=== PATIENT | male | born 1990 | race African-American/Black ===

== ENCOUNTER 2018-01-27 12:53 | Emergency (ER) | payer SELFPAY ==
[2018-01-27] MEDS: LIDOCAINE WITH 8.4% SOD BICARB 3 ML DISP.SYRIN. INJ (13:08)
[2018-01-27] MEDS: DIPHTH,PERTUSS(ACELL),TET TOX 0.5 ML DISP.SYRIN. VAX IM (13:11)
[2018-01-27] MEDS: LIDOCAINE 1% PF 30 ML VIAL. INJ (13:11)
== END 2018-01-27 13:39 | disposition home or self-care (01) ==
LOC: ER 12:53
DX: S61.216A Laceration without foreign body of right little finger without damage to nail, initial encounter (principal); W25.XXXA Contact with sharp glass, initial encounter; Y93.89 Activity, other specified; Y92.89 Other specified places as the place of occurrence of the external cause; Y99.8 Other external cause status
CPT/HCPCS: 12001; 90471; 90715; 99283

== ENCOUNTER 2018-05-12 21:59 | Emergency (ER) | payer SELFPAY ==
[~2018-05-12] VITALS: Ht 172.7 cm; Wt 65.8 kg
[2018-05-12] MEDS ORDERED: IV NORMAL SALINE 1000ML BAG 1,000 ML IV ONE (22:45)
[2018-05-12] MEDS ORDERED: fentaNYL PF VIAL 100 MCG/2 ML VIAL IV ONE (23:00)
[2018-05-12 23:04] LABS: BASO % 0 % (0-3); EOS # 0.1 x10^3/uL (0.0-0.7); EOS % 1 % (0-3); HEMATOCRIT 36.1 % (39.0-53.0); HEMOGLOBIN 12.6 g/dL (13.0-17.5); LYMPH # 1.9 x10^3/uL (1.0-4.8); LYMPH % 18 % (24-48); MEAN CORPUSCULAR HEMOGLOBIN 33 pg (25-35); MEAN CORPUSCULAR HGB CONC 35 g/dL (31-37); MEAN CORPUSCULAR VOLUME 95 fL (79-100); MONO # 0.9 x10^3/uL (0.0-1.1); MONO % 9 % (0-9); NEUT # 7.5 x10^3uL (1.8-7.7); NEUT % 72 % (31-73); PLATELET COUNT 190 x10^3/uL (140-400); RED BLOOD COUNT 3.79 x10^6/uL (4.30-5.70); RED CELL DISTRIBUTION WIDTH 12.6 % (11.5-14.5); WHITE BLOOD COUNT 10.5 x10^3/uL (4.0-11.0)
[2018-05-12 23:07] LABS: BILIRUBIN,URINE NEGATIVE (NEG); CLARITY,URINE CLEAR; COLOR,URINE YELLOW; NITRITE,URINE NEGATIVE (NEG); PH,URINE 6.5; PROTEIN,URINE NEGATIVE (NEG-TRACE)
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
[2018-05-12 23:15] LABS: CALCIUM 9.4 mg/dL (8.5-10.1); CREATININE 0.9 mg/dL (0.7-1.3); GFR 122.5; POTASSIUM 3.6 mmol/L (3.5-5.1)
[2018-05-12 23:18] LABS: BACTERIA,URINE MODERATE /HPF (0-FEW); SQUAMOUS EPITHELIAL CELL,UR FEW /LPF; WBC,URINE TNTC /HPF (0-4)
[2018-05-12 23:19] LABS: HYALINE CASTS, URINE FEW /HPF
[2018-05-12 23:20] LABS: ALBUMIN 3.8 g/dL (3.4-5.0); TOTAL BILIRUBIN 0.3 mg/dL (0.2-1.0); TOTAL PROTEIN 7.8 g/dL (6.4-8.2)
--- NOTE | 2018-05-13 00:21 | RAD ---
Scrotal ultrasound: Reason for examination: Right testicular pain with swelling. The scrotal was evaluated with grayscale imaging, color-flow imaging and spectral analysis. The right testicle measures 4.5 x 2.9 x 2.4 cm in greatest dimension. There is normal vascular flow. No focal lesions are seen. The right epididymis appears be enlarged with increased vascularity consistent with epididymitis. There is a small hydrocele present. The left testicle measures 5.1 x 2.3 x 2.3 cm in greatest dimension appears homogeneous with good vascular flow. No abnormality seen at the left epididymis. No significant hydrocele is present on the left. IMPRESSION: Enlarged heterogeneous right epididymis with increased vascularity consistent with epididymitis. Electronically signed by: Gabriella Jason MD (05/13/2018 12:18 AM) [id number]
[2018-05-13] MEDS ORDERED: DOXY100T PO (01:17)
[2018-05-13] MEDS ORDERED: HYDR-971 PO (01:17)
[2018-05-13 01:48] VITALS: BP 108/58
== END 2018-05-13 02:04 | disposition home or self-care (01) ==
LOC: ER 21:59
DX: N45.1 Epididymitis (principal); R10.9 Unspecified abdominal pain; F17.210 Nicotine dependence, cigarettes, uncomplicated
CPT/HCPCS: 36415; 76870; 80053; 81001; 85025; 87086; 87491; 87591; 96365; 96375; 99285; J0690; J3010; J7030

== ENCOUNTER 2021-09-16 07:53 | Emergency (ER) | payer BC ==
[~2021-09-16] VITALS: Ht 170.2 cm; Wt 135.0 kg
[~2021-09-16 07:53] MED LIST: DOXY100T PO; HYDR-3164 PO
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
--- NOTE | 2021-09-16 08:50 | RAD ---
EXAM: Bilateral knees, 3 views. HISTORY: Pain. COMPARISON: None. FINDINGS: 2 views of both knees are obtained. There is no fracture, dislocation or subluxation. There is no joint effusion. IMPRESSION: No acute osseous finding. Electronically signed by: Lavinia Doe MD (09/16/2021 8:47 AM) [id number]
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
[2021-09-16] MEDS ORDERED: NAPR500T8 PO (09:18)
[2021-09-16 09:25] VITALS: BP 119/67
== END 2021-09-16 09:28 | disposition home or self-care (01) ==
LOC: ER 07:53
DX: M54.2 Cervicalgia (principal); M25.561 Pain in right knee; M25.562 Pain in left knee; Z72.0 Tobacco use
CPT/HCPCS: 72040; 99284; 73562-50